=== PATIENT | female | born 1985 | race Caucasian/White ===

== ENCOUNTER 2019-12-21 | Emergency (ER) | payer OTHER ==
[~2019-12-21] MED LIST: AMOXICILLIN500 MG OR; NO MEDS; ROBITUSSIN AC10 ML OR
[2019-12-21] MEDS ORDERED: FLEXERIL PO (20:30)
[2019-12-21] MEDS ORDERED: ULTRAM50 M1 PO (20:30)
== END 2019-12-21 20:35 | disposition home or self-care (01) | DRG 552 ==
DX: M47.816 Spondylosis without myelopathy or radiculopathy, lumbar region (principal); F17.200 Nicotine dependence, unspecified, uncomplicated